=== PATIENT | male | born 1940 | race Caucasian/White ===

== ENCOUNTER 2017-03-31 09:37 | Inpatient (IN) | payer OTHER ==
[~2017-03-31] VITALS: Ht 188 cm; Wt 89.6 kg
[2017-03-31] MEDS ORDERED: DOXA1TAB42 PO (09:55)
[2017-03-31] MEDS ORDERED: LISI30TA4 PO (09:55)
[2017-03-31] MEDS ORDERED: SIMV40TA2 PO (09:55)
[2017-03-31] MEDS ORDERED: FISH100049 PO (09:55)
[2017-03-31] MEDS ORDERED: MULT1TAB10 PO (09:55)
[2017-03-31] MEDS ORDERED: VITA1CAP2 PO (09:55)
[2017-03-31] MEDS ORDERED: ASPI81TA85 PO (09:55)
[2017-03-31] MEDS ORDERED: DORZOL/TIMOL (09:55)
[2017-03-31] MEDS ORDERED: LEVO25TA5 PO (09:55)
[2017-03-31] MEDS ORDERED: ASPIRIN 81 MG CHEW TABLET PO ONE (10:15)
[2017-03-31 10:19] LABS: BASO % 0.3 % (0.0-1.0); EOS # 0.1 K/mm3 (0.0-0.50); EOS % 2.4 % (0.0-3.0); LARGE UNSTAINED CELL # 0.1 K/mm3 (0.0-0.4); LYMPH # 1.6 K/mm3 (1.5-4.5); LYMPH % 28.3 % (24.0-44.0); MEAN CORPUSCULAR HEMOGLOBIN 30.3 pg (27.0-33.0); MEAN CORPUSCULAR HGB CONC 32.1 g/dl (32.0-36.5); MEAN CORPUSCULAR VOLUME 94.6 fl (80.0-96.0); MONO # 0.4 K/mm3 (0.0-0.8); MONO % 6.7 % (0.0-5.0); NEUTROPHILS # 3.3 K/mm3 (1.8-7.7); NEUTROPHILS % 60.3 % (36.0-66.0); PLATELET COUNT, AUTOMATED 177 k/mm3 (150-450); RED CELL DISTRIBUTION WIDTH 13.2 % (11.5-14.5); WHITE BLOOD COUNT 5.5 K/mm3 (4.0-10.0)
[2017-03-31 10:38] LABS: ALBUMIN 3.5 GM/DL (3.2-5.2); ALBUMIN/GLOBULIN RATIO 1.03 (1.00-1.93); ALKALINE PHOSPHATASE 91 U/L (45-117); ALT/SGPT 31 U/L (12-78); ANION GAP 6 MEQ/L (8-16); AST/SGOT 21 U/L (15-37); BILIRUBIN,DIRECT 0.2 MG/DL (0.0-0.2); BILIRUBIN,TOTAL 0.7 MG/DL (0.2-1.0); BLOOD UREA NITROGEN 17 MG/DL (7-18); CALCIUM LEVEL 8.9 MG/DL (8.8-10.2); CARBON DIOXIDE LEVEL 25 MEQ/L (21-32); CHLORIDE LEVEL 113 MEQ/L (98-107); CREATININE FOR GFR 1.06 MG/DL (0.70-1.30); GLOMERULAR FILTRATION RATE > 60.0 (>42); GLUCOSE, FASTING 95 MG/DL (83-110); SODIUM LEVEL 144 MEQ/L (136-145); TOTAL PROTEIN 6.9 GM/DL (6.4-8.2)
--- NOTE | 2017-03-31 10:49 | REP ---
Chest one-view HISTORY: Chest pain Comparison: None The lungs are clear. The cardiac silhouette is enlarged. The pulmonary vasculature is normal in appearance. Impression: Cardiomegaly. Signed by Eusebio Hernandez MD 03/31/2017 10:40 A
[2017-03-31] MEDS ORDERED: METOPROLOL SUCC *XL* 25MG TAB (TopROL *XL*) PO ONE (12:00)
[2017-03-31] MEDS ORDERED: ENOXAPARIN 100MG/1ML SYRINGE (J1650) SC ONE ×2 (12:00→12:30)
--- NOTE | 2017-03-31 12:04 | ECGEPIP ---
Stationary ECG Study [facility] - ED Test Date: 2017-03-31 Pat Name: SOPHIA IVY Department: Room: - Gender: M Infrastructure Manager: KVNG : 1940 Requested By: HERNAN Hung Order Number: [id number] Reading MD: Kayley Carpenter Measurements Intervals [place] Rate: 106 P: VT: 0 QRS: -57 QRSD: 153 T: 52 QT: 315 QTc: 419 Interpretive Statements ATRIAL FIBRILLATION WITH RAPID VENTRICULAR RESPONSE RIGHT BUNDLE BRANCH BLOCK LEFT ANTERIOR FASCICULAR BLOCK MINIMAL VOLTAGE CRITERIA FOR LVH, CONSIDER NORMAL VARIANT NO PRIOR FOR COMPARISON Electronically Signed On 03-31-2017 12:04:05 EDT by Kayley Carpenter
[2017-03-31] MEDS ORDERED: ENOXAPARIN 100MG/1ML SYRINGE (J1650) As Ordered ONE (12:22)
[2017-03-31] MEDS ORDERED: ONDANSETRON 4MG/2ML VIAL (J2405) IV PRN (12:30)
[2017-03-31] MEDS ORDERED: ACETAMINOPHEN TAB 650MG DOSE (2X325MG) PO PRN (12:30)
[2017-03-31] MEDS ORDERED: DORZ2SOL5 OU (12:34)
[2017-03-31] MEDS ORDERED: VITMTA PO (12:34)
[2017-03-31] MEDS ORDERED: LEVO50TA45 PO (12:34)
--- NOTE | 2017-03-31 12:53 | HPEPDOC ---
General Date of Admission 03/31/17 Other Providers PCP: Dr. Serrano of [place] Chief Complaint The patient is a 76-year-old male admitted with a reason for visit of Palpitation. History of Present Illness 76-year-old Male with past medical history significant for hypertension, dyslipidemia, hypothyroidism, and BPH who follows with Dr. Serrano of the [place] [facility] presented to the ER after he was found to have an irregular heartbeat by his dentist yesterday. According to the patient, he went in for routine dental work yesterday, when he was found to be hypertensive at the dentist's office. Upon auscultation, the patient was noted to have an irregular heartbeat, at which time the patient was referred to see his primary care physician. The patient was subsequently sent from his PCPs office to the ER for further evaluation of new onset atrial fibrillation. At this time, the patient states that he has felt asymptomatic and denies any complaints or symptoms of fevers, chills, chest pain, shortness of breath, palpitations, abdominal pain, or any nausea/vomiting/diarrhea. The patient denies any history of heart disease. He does note that he had a stress test over 10 years ago, and his last EKG was about 5 years ago, and he notes that there were no significant abnormalities noted then. In the ER, an EKG revealed atrial fibrillation with rapid ventricular rate in the 120s. Initial troponin marker is within normal limits. The patient will be admitted under the hospitalist service for further evaluation and management Dr. Nieves of cardiology was consulted by the ER physician, and will see the patient in consult. Home Medications Scheduled (Dorzolamide HCl/Timolol M 22.3-6.8 mg/ml) 1 Hannah Hannah, 1 DROP OU BID, (Reported) Cholecalciferol (Vitamin D-3) 1,000 Unit Cap, 1,000 UNIT PO DAILY, (Reported) Doxazosin Mesylate (Doxazosin Mesylate) 1 Mg Tab, 2 MG PO QHS, (Reported) PT INCREASED THIS MEDICATION FROM 1MG TO 2MG BY HIMSELF Fish Oil (Fish Oil 1000 mg) 1 Cap Cap, 2 CAP PO DAILY, (Reported) Levothyroxine Sodium (Levoxyl) 50 Mcg Tab, 50 MCG PO DAILY, (Reported) Lisinopril (Lisinopril) 30 Mg Tab, 30 MG PO DAILY, (Reported) Multivitamins *SMC STOCKED* (Thera M Plus *[facility]C STOCKED*) 1 Tab Tab, 1 TAB PO BID , (Reported) Simvastatin - High Dose (Simvastatin) 40 Mg Tab, 20 MG PO QHS, (Reported) Allergies Coded Allergies: Tamsulosin (Verified Adverse Reaction, Mild, lightheaded, 03/31/17) Past Medical History Medical History As noted in HPI Surgical History Surgery of the Retina 30+ years ago. Family History Significant Family History: No pertinent family hx Social History * Smoker: Denies Alcohol: Denies Drugs: denies Recent Travel/Sick Contacts: Denies: Recent travel, Recent sick contacts Review of Symptoms Constitutional: Denies: Chills, Fever, Malaise Eyes: Denies: Pain, Vision change ENT: Denies: Head Aches, Ear Pain Skin: Denies: Rash, Lesions Pulmonary: Denies: Dyspnea, Cough Cardiovascular: Denies: Chest Pain, Palpitations, Orthopnea Gastrointestinal: Denies: Nausea, Abdominal Pain Genitourinary: Denies: Dysuria, Frequency Hematologic: Denies: Bruising, Bleeding Excessively Musculoskeletal: Denies: Neck Pain, Back Pain Physical Examination General Exam: Positive: Alert, Cooperative, No Acute Distress ENT Exam: Positive: Atraumatic, Mucous membr. moist/pink Neck Exam: Negative: JVD Chest Exam: Positive: Clear to auscultation, Normal air movement Heart Exam: Positive: Tachycardic, Irregular Rhythm Telemetry: Positive: Atrial fibrillation Abdomen Exam: Positive: Soft, Negative: Tenderness Extremity Exam: Negative: Tenderness, Swelling Psych Exam: Positive: Oriented x 3 Vital Signs Vital Signs Date Time Temp Pulse Resp B/P (MAP) Pulse Ox O2 Delivery O2 Flow Rate FiO2 03/31/17 12:05 117 114/112 03/31/17 11:22 98 03/31/17 09:38 99.1 18 Room Air Laboratory Data Labs 24H Laboratory Tests 2 03/31/17 09:57: White Blood Count 5.5, Red Blood Count 4.58, Hemoglobin 13.9L, Hematocrit 43.3, Mean Corpuscular Volume 94.6, Mean Corpuscular Hemoglobin 30.3, Mean Corpuscular Hemoglobin Concent 32.1, Red Cell Distribution Width 13.2, Platelet Count 177, Neutrophils (%) (Auto) 60.3, Lymphocytes (%) (Auto) 28.3, Monocytes ( %) (Auto) 6.7H, Eosinophils (%) (Auto) 2.4, Basophils (%) (Auto) 0.3, Neutrophils # (Auto) 3.3, Lymphocytes # (Auto) 1.6, Monocytes # (Auto) 0.4, Eosinophils # (Auto) 0.1, Basophils # (Auto) 0.0, Large Unclassified Cells % 2.0 , Large Unclassified Cells # 0.1, Activated Partial Thromboplast Time 32.0, Anion Gap 6L, Glomerular Filtration Rate > 60.0, Calcium Level 8.9, Aspartate Amino Transf (AST/SGOT) 21, Alanine Aminotransferase (ALT/SGPT) 31, Alkaline Phosphatase 91, Total Bilirubin 0.7, Direct Bilirubin 0.2, Total Creatine Kinase 83, Creatine Kinase MB 1.7, Creatine Kinase MB Relative Index 2.04, Troponin I < 0.02, B-Type Natriuretic Peptide 172H, Total Protein 6.9, Albumin 3.5, Albumin/Globulin Ratio 1.03 CBC/BMP Laboratory Tests 03/31/17 09:57 Red Blood Count 4.58, Mean Corpuscular Volume 94.6, Mean Corpuscular Hemoglobin 30.3, Mean Corpuscular Hemoglobin Concent 32.1, Red Cell Distribution Width 13.2 , Neutrophils (%) (Auto) 60.3, Lymphocytes (%) (Auto) 28.3, Monocytes (%) (Auto ) 6.7 H, Eosinophils (%) (Auto) 2.4, Basophils (%) (Auto) 0.3, Neutrophils # ( Auto) 3.3, Lymphocytes # (Auto) 1.6, Monocytes # (Auto) 0.4, Eosinophils # (Auto ) 0.1, Basophils # (Auto) 0.0 Plan / VTE VTE Prophylaxis Ordered?: Yes Plan Plan New Onset Atrial Fibrillation Will admit to PCU EKG notable for A-Fib with RVR--given dose of Metoprolol in the ER and his HR is now in the 90s Initial troponin negative, will serially trend Will Continue Metoprolol 25mg BID Will start anticoagulation with Lovenox 90mg SC BID--discussed risks and benefits associated with AC therapy extensively with the patient 2D ECHO ordered Will order TFT's, Magnesium level Cardiology to see the pt in consult We will continue to monitor the patient on Telemetry Hypertension, stable Cont Lisinopril, Doxazosin Dyslipidemia Cont Statin Hypothyroidism Will check TFT's Cont Levothyroxine BPH Cont Doxazosin DVT Prophylaxis Already on Lovenox SC BID for A-Fib The patient will be admitted under the service of Dr. Willams, who will begin to follow the patient on 04/01/17 @ 7am. WENDY SAUCEDO MD Mar 31, 2017 12:53
[2017-03-31 13:34] LABS: INR 1.11
[2017-03-31 13:52] LABS: CHOLESTEROL LEVEL 121 MG/DL (<200); MAGNESIUM LEVEL 2.1 MG/DL (1.8-2.4); TRIGLYCERIDES LEVEL 54 MG/DL (<150)
[2017-03-31 13:58] LABS: T UPTAKE 40 % (33-40)
[2017-03-31] MEDS ORDERED: PREVNAR 13 VACCINE SYRINGE (CPT CODE:90670) IM ONE (14:00)
[2017-03-31] MEDS ORDERED: NEOSPORIN OINT 0.9 GM PKT (FLOOR STOCK) As Ordered ONE (16:43)
[2017-03-31 18:25] VITALS: BP 150/88
[2017-03-31 20:00] VITALS: BP 139/90
[2017-03-31] MEDS: SIMVASTATIN 20 MG TAB PO SCH (20:09)
[2017-03-31] MEDS: DOXAZOSIN MESYLATE 1 MG TAB PO SCH (20:09)
[2017-03-31] MEDS: MULTIVITAMINS/MINERALS THERAP 1 TAB PO SCH (20:09)
[2017-03-31] MEDS ORDERED: METOPROLOL TART 25 MG TABLET PO SCH (21:00)
[2017-03-31] MEDS: ENOXAPARIN 100MG/1ML SYRINGE (J1650) SC SCH (22:10)
[2017-03-31] MEDS ORDERED: SLF 3 ML SYR IV PRN (22:45)
[2017-03-31 23:59] VITALS: BP 135/88
[2017-04-01 04:45] VITALS: BP 124/74
[2017-04-01] MEDS: SLF 3 ML SYR IV SCH ×3 (05:21→21:04)
[2017-04-01] MEDS: LEVOTHYROXINE 50MCG TABLET (0.05MG) PO SCH (05:21)
[2017-04-01 05:36] LABS: MEAN CORPUSCULAR HEMOGLOBIN 30.9 pg (27.0-33.0); MEAN CORPUSCULAR HGB CONC 32.5 g/dl (32.0-36.5); RED CELL DISTRIBUTION WIDTH 13.2 % (11.5-14.5); WHITE BLOOD COUNT 4.7 K/mm3 (4.0-10.0)
[2017-04-01 05:46] LABS: ANION GAP 6 MEQ/L (8-16); BLOOD UREA NITROGEN 17 MG/DL (7-18); CALCIUM LEVEL 8.4 MG/DL (8.8-10.2); CARBON DIOXIDE LEVEL 26 MEQ/L (21-32); CHLORIDE LEVEL 111 MEQ/L (98-107); CREATININE FOR GFR 1.02 MG/DL (0.70-1.30); GLOMERULAR FILTRATION RATE > 60.0 (>42); GLUCOSE, FASTING 79 MG/DL (83-110); MAGNESIUM LEVEL 1.9 MG/DL (1.8-2.4); SODIUM LEVEL 143 MEQ/L (136-145)
[2017-04-01 08:00] VITALS: BP 135/85
[2017-04-01] MEDS: LISINOPRIL 10 MG TAB PO SCH (09:11)
[2017-04-01] MEDS: VITAMIN D 1,000 INTERNATIONAL UNITS TABLET PO SCH (09:11)
[2017-04-01] MEDS: OMEGA-3 1050MG CAPSULE PO SCH (09:12)
[2017-04-01] MEDS: METOPROLOL TART 25 MG TABLET PO SCH ×2 (09:12→20:05)
[2017-04-01] MEDS: MULTIVITAMINS/MINERALS THERAP 1 TAB PO SCH ×2 (09:12→20:05)
[2017-04-01 12:00] VITALS: BP 119/76
[2017-04-01] MEDS: ENOXAPARIN 100MG/1ML SYRINGE (J1650) SC SCH ×2 (12:20→22:09)
--- NOTE | 2017-04-01 13:17 | IPNPDOC ---
Subjective Date Seen The patient was seen on 04/01/17. Subjective Chief Complaint/HPI The patient is a 76-year-old male admitted with a reason for visit of New Onset A-Fib. Constitutional: Denies: Chills, Fever, Night Sweats Pulmonary: Denies: Dyspnea, Cough Cardiovascular: Denies: Chest Pain, Palpitations, Orthopnea, Paroxysmal Noc. Dyspnea, Lt Headedness Objective Physical Examination General Exam: Positive: Alert, Cooperative, No Acute Distress ENT Exam: Positive: Atraumatic, Mucous membr. moist/pink Neck Exam: Negative: JVD Chest Exam: Positive: Clear to auscultation, Normal air movement Heart Exam: Positive: Tachycardic, Irregular Rhythm Telemetry: Positive: Atrial fibrillation Abdomen Exam: Positive: Soft, Negative: Tenderness Extremity Exam: Negative: Tenderness, Swelling Psych Exam: Positive: Oriented x 3 Assessment /Plan Problems (1) New onset a-fib Status: Acute Problem Text: * pt was found to be in afib when he went to see his dentist last week * he went to his pcp who diagnosed with Afib and sent him to the hospital * will resume metoprolol tartrate 25bid, and eliquis * will need to f/u with cardiology outpt * i spoke with Dr howell who is happy to see him oupt * pt has a 2 sec pause on tele, i discussed finding with dr howell who stated that it's not an indication to stop his beta cherie * will monitor him on tele overnight and anticipate discharge in 24-48 hours * echo is pending (2) Tooth ache Status: Acute Problem Text: * will resume pt's amoxicillin (3) HTN (hypertension) Status: Chronic Response to Treatment: Stable (4) HLD (hyperlipidemia) Status: Chronic Response to Treatment: Stable (5) Hypothyroidism Status: Chronic Response to Treatment: Stable (6) BPH (benign prostatic hyperplasia) Status: Chronic Plan/VTE VTE Prophylaxis Ordered?: Yes VS, I&O, 24H, Fishbone Vital Signs/I&O Vital Signs Date Time Temp Pulse Resp B/P (MAP) Pulse Ox O2 Delivery O2 Flow Rate FiO2 04/01/17 09:12 140 04/01/17 09:11 135/85 04/01/17 08:00 98.0 18 99 Room Air I&O- Last 24 Hours up to 6 AM 04/01/17 06:00 Intake Total 120 ml Output Total 0 ml Balance 120 ml Laboratory Data 24H LABS Laboratory Tests 2 03/31/17 13:16: Prothrombin Time 14.4, Prothromb Time International Ratio 1.11 03/31/17 20:34: Total Creatine Kinase 81, Creatine Kinase MB 2.5, Creatine Kinase MB Relative Index 3.08, Troponin I < 0.02 04/01/17 04:52: Total Creatine Kinase 73, Creatine Kinase MB 1.4, Creatine Kinase MB Relative Index 1.91, Troponin I < 0.02, Anion Gap 6L, Glomerular Filtration Rate > 60.0, Blood Urea Nitrogen 17, Creatinine 1.02, Sodium Level 143, Potassium Level 4.0, Chloride Level 111H, Carbon Dioxide Level 26, Calcium Level 8.4L, Magnesium Level 1.9 CBC/BMP Laboratory Tests 04/01/17 04:52 Red Blood Count 4.25 L, Mean Corpuscular Volume 95.0, Mean Corpuscular Hemoglobin 30.9, Mean Corpuscular Hemoglobin Concent 32.5, Red Cell Distribution Width 13.2, Calcium Level 8.4 L, Total Creatine Kinase 73 TANVIR CARIAS DO Apr 01, 2017 13:17
--- NOTE | 2017-04-01 14:34 | ECHO ---
DATE OF PROCEDURE: 03/31/2017 REFERRING PHYSICIAN: Dr. Boubacar Smith INDICATION: Abnormal ECG, atrial fibrillation. HEIGHT: 74 inches WEIGHT: 202 pounds 2D MEASUREMENTS: Aortic root: 4.7 cm Proximal ascending aorta: 3.9 cm Left atrium: 5.4 cm Ventricular septum: 1.12 cm Posterior wall: 1.12 cm Left ventricle diastole: 5.8 cm Left ventricle systole: 4.2 cm LVOT: 2.2 cm Inferior vena cava: 1.8 cm (more than 50% respiratory variation). DOPPLER MEASUREMENTS: Mild aortic regurgitation. Aortic regurgitation pressure half time: 651 ms Aortic valve velocity: 187 cm/s LVOT velocity: 113 cm/s LVOT VTI: 21.8 cm Very mild mitral regurgitation. Estimated right ventricle systolic pressure 28 mmHg assuming a right atrial pressure of 5 mmHg. Mild tricuspid regurgitation. DESCRIPTION: Rhythm was atrial fibrillation. This is a 2D, M-mode, color flow Doppler and pulse wave Doppler examination that included mitral annular tissue Doppler. No pericardial effusion. CONCLUSIONS: 1. Mildly dilated left ventricle with normal left ventricle (LV) wall thicknesses. Moderate global LV hyperkinesis. Severe reduction overall LV systolic function. Left ventricular ejection fraction (LVEF) 35% by visual estimate. 2. Severe left atrial dilatation. 3. Mild-moderate aortic valve sclerosis. No aortic stenosis. Mild aortic regurgitation. 4. Mild dilatation of the aortic root at both the level of the sinus of Valsalva and proximal ascending aorta. 5. Mild mitral annular calcification. Mild mitral regurgitation. 6. Normal right ventricle size and systolic function. Moderate right atrial dilatation by visual estimate.
[2017-04-01] MEDS: AMOXICILLIN 500 MG CAP PO SCH ×2 (15:19→21:05)
[2017-04-01 16:00] VITALS: BP 122/75
[2017-04-01] MEDS: SIMVASTATIN 20 MG TAB PO SCH (20:04)
[2017-04-01] MEDS: DOXAZOSIN MESYLATE 1 MG TAB PO SCH (20:04)
[2017-04-01 20:32] VITALS: BP 140/91
[2017-04-01 23:59] VITALS: BP 136/98
[2017-04-02 04:45] VITALS: BP 132/99
[2017-04-02] MEDS: SLF 3 ML SYR IV SCH ×3 (05:06→21:01)
[2017-04-02] MEDS: LEVOTHYROXINE 50MCG TABLET (0.05MG) PO SCH (05:06)
[2017-04-02] MEDS: AMOXICILLIN 500 MG CAP PO SCH ×3 (05:06→21:00)
[2017-04-02 05:12] LABS: MEAN CORPUSCULAR HEMOGLOBIN 31.3 pg (27.0-33.0); MEAN CORPUSCULAR HGB CONC 33.6 g/dl (32.0-36.5); MEAN CORPUSCULAR VOLUME 93.1 fl (80.0-96.0); RED CELL DISTRIBUTION WIDTH 13.1 % (11.5-14.5); WHITE BLOOD COUNT 4.8 K/mm3 (4.0-10.0)
[2017-04-02 05:22] LABS: ANION GAP 8 MEQ/L (8-16); BLOOD UREA NITROGEN 22 MG/DL (7-18); CALCIUM LEVEL 8.1 MG/DL (8.8-10.2); CARBON DIOXIDE LEVEL 26 MEQ/L (21-32); CHLORIDE LEVEL 110 MEQ/L (98-107); CREATININE FOR GFR 1.07 MG/DL (0.70-1.30); GLOMERULAR FILTRATION RATE > 60.0 (>42); GLUCOSE, FASTING 87 MG/DL (83-110); MAGNESIUM LEVEL 1.9 MG/DL (1.8-2.4); POTASSIUM SERUM 4.3 MEQ/L (3.5-5.1); SODIUM LEVEL 144 MEQ/L (136-145)
[2017-04-02 08:00] VITALS: BP 146/92
--- NOTE | 2017-04-02 08:33 | IPNPDOC ---
Subjective Date Seen The patient was seen on 04/02/17. Subjective Chief Complaint/HPI The patient is a 76-year-old male admitted with a reason for visit of New Onset A-Fib. Events since last encounter pt seen and examined, doing well, but had another pause on tele overnight, 2 second pause, pt denies any chest pain or shortness of breath, denies any dizziness Objective Physical Examination General Exam: Positive: Alert, Cooperative, No Acute Distress ENT Exam: Positive: Atraumatic, Mucous membr. moist/pink Neck Exam: Negative: JVD Chest Exam: Positive: Clear to auscultation, Normal air movement Heart Exam: Positive: Tachycardic, Irregular Rhythm Telemetry: Positive: Atrial fibrillation Abdomen Exam: Positive: Soft, Negative: Tenderness Extremity Exam: Negative: Tenderness, Swelling Psych Exam: Positive: Oriented x 3 Assessment /Plan Problems (1) New onset a-fib Status: Acute Problem Text: * pt was found to be in afib when he went to see his dentist last week * he went to his pcp who diagnosed with Afib and sent him to the hospital * will decrease dose of metoprolol tartrate to 12.5 bid, and eliquis 5mg bid * will need to f/u with cardiology outpt * i spoke with Dr howell who is happy to see him oupt * pt has a 2 sec pause on tele, i discussed finding with dr howell who stated that it's not an indication to stop his beta cherie but will decrease the dose * will monitor him on tele overnight and anticipate discharge in 24-48 hours * echo showed EF of 35% * CHADS score of 3 (2) Tooth ache Status: Acute Problem Text: * will resume pt's amoxicillin (3) HTN (hypertension) Status: Chronic Response to Treatment: Stable (4) HLD (hyperlipidemia) Status: Chronic Response to Treatment: Stable (5) Hypothyroidism Status: Chronic Response to Treatment: Stable (6) BPH (benign prostatic hyperplasia) Status: Chronic (7) CHF (congestive heart failure) Status: Chronic Response to Treatment: Stable, Controlled Problem Text: * per echo done on 04/01 EF of 35% * systolic CHF, controlled, no in acute chf Plan/VTE VTE Prophylaxis Ordered?: Yes VS, I&O, 24H, Fishbone Vital Signs/I&O Vital Signs Date Time Temp Pulse Resp B/P (MAP) Pulse Ox O2 Delivery O2 Flow Rate FiO2 04/02/17 08:00 97.3 98 18 146/92 (110) 98 Room Air I&O- Last 24 Hours up to 6 AM 04/02/17 06:00 Intake Total 840 ml Output Total 700 ml Balance 140 ml Laboratory Data 24H LABS Laboratory Tests 2 04/02/17 04:20: Anion Gap 8, Glomerular Filtration Rate > 60.0, Blood Urea Nitrogen 22H, Creatinine 1.07, Sodium Level 144, Potassium Level 4.3, Chloride Level 110H, Carbon Dioxide Level 26, Calcium Level 8.1L, Magnesium Level 1.9 CBC/BMP Laboratory Tests 04/02/17 04:20 Red Blood Count 4.15 L, Mean Corpuscular Volume 93.1, Mean Corpuscular Hemoglobin 31.3, Mean Corpuscular Hemoglobin Concent 33.6, Red Cell Distribution Width 13.1, Calcium Level 8.1 L TANVIR CARIAS DO Apr 02, 2017 08:33
[2017-04-02] MEDS: METOPROLOL TART 12.5 MG PER 1/2 TAB PO SCH ×2 (08:49→20:59)
[2017-04-02] MEDS: VITAMIN D 1,000 INTERNATIONAL UNITS TABLET PO SCH (08:50)
[2017-04-02] MEDS: OMEGA-3 1050MG CAPSULE PO SCH (08:50)
[2017-04-02] MEDS: MULTIVITAMINS/MINERALS THERAP 1 TAB PO SCH ×2 (08:50→21:00)
[2017-04-02] MEDS: APIXABAN 5 MG TAB (ELIQUIS) PO SCH ×2 (08:50→21:00)
[2017-04-02] MEDS: LISINOPRIL 10 MG TAB PO SCH (08:50)
[2017-04-02] MEDS ORDERED: PREVNAR 13 VACCINE SYRINGE (CPT CODE:90670) IM ONE (09:00)
[2017-04-02 12:00] VITALS: BP 123/77
[2017-04-02 16:00] VITALS: BP 141/85
[2017-04-02 20:09] VITALS: BP 127/79
[2017-04-02] MEDS: SIMVASTATIN 20 MG TAB PO SCH (21:00)
[2017-04-02] MEDS: DOXAZOSIN MESYLATE 1 MG TAB PO SCH (21:00)
[2017-04-03 00:17] VITALS: BP 126/75
[2017-04-03 05:30] VITALS: BP 139/80
[2017-04-03] MEDS: SLF 3 ML SYR IV SCH ×3 (05:34→21:16)
[2017-04-03] MEDS: LEVOTHYROXINE 50MCG TABLET (0.05MG) PO SCH (05:34)
[2017-04-03] MEDS: AMOXICILLIN 500 MG CAP PO SCH ×3 (05:34→21:15)
[2017-04-03 05:35] LABS: MEAN CORPUSCULAR HEMOGLOBIN 30.6 pg (27.0-33.0); MEAN CORPUSCULAR HGB CONC 32.1 g/dl (32.0-36.5); MEAN CORPUSCULAR VOLUME 95.3 fl (80.0-96.0); RED CELL DISTRIBUTION WIDTH 12.9 % (11.5-14.5); WHITE BLOOD COUNT 6.4 K/mm3 (4.0-10.0)
[2017-04-03 05:53] LABS: ANION GAP 5 MEQ/L (8-16); BLOOD UREA NITROGEN 22 MG/DL (7-18); CALCIUM LEVEL 8.3 MG/DL (8.8-10.2); CARBON DIOXIDE LEVEL 28 MEQ/L (21-32); CHLORIDE LEVEL 110 MEQ/L (98-107); CREATININE FOR GFR 1.05 MG/DL (0.70-1.30); GLOMERULAR FILTRATION RATE > 60.0 (>42); GLUCOSE, FASTING 82 MG/DL (83-110); MAGNESIUM LEVEL 2.2 MG/DL (1.8-2.4); POTASSIUM SERUM 4.2 MEQ/L (3.5-5.1); SODIUM LEVEL 143 MEQ/L (136-145)
[2017-04-03 08:00] VITALS: BP 116/69
[2017-04-03] MEDS: LISINOPRIL 10 MG TAB PO SCH (08:05)
[2017-04-03] MEDS: METOPROLOL TART 12.5 MG PER 1/2 TAB PO SCH (08:06)
[2017-04-03] MEDS: OMEGA-3 1050MG CAPSULE PO SCH (08:06)
[2017-04-03] MEDS: APIXABAN 5 MG TAB (ELIQUIS) PO SCH ×2 (08:06→21:15)
[2017-04-03] MEDS: MULTIVITAMINS/MINERALS THERAP 1 TAB PO SCH (08:06)
[2017-04-03] MEDS: VITAMIN D 1,000 INTERNATIONAL UNITS TABLET PO SCH (08:06)
[2017-04-03 12:00] VITALS: BP 126/83
[2017-04-03] MEDS ORDERED: ELIQ5TAB PO (13:06)
[2017-04-03 16:00] VITALS: BP 138/89
[2017-04-03 19:48] VITALS: BP 136/95
[2017-04-03] MEDS ORDERED: CARVedilol 6.25 MG TAB PO SCH (21:00)
[2017-04-03] MEDS: COSOPT OCUMETER PLUS 10ML (DORZOLAMIDE/TIMOLOL) OU SCH (21:15)
[2017-04-03] MEDS: SIMVASTATIN 20 MG TAB PO SCH (21:15)
[2017-04-03] MEDS: METOPROLOL SUCC *XL* 25MG TAB (TopROL *XL*) PO SCH (21:15)
--- NOTE | 2017-04-03 22:24 | CR ---
DATE OF CONSULTATION: 04/03/2017 REFERRING PHYSICIAN: Dr. Geronimo Finnegan REASON FOR CONSULTATION: Atrial fibrillation, dilated cardiomyopathy. Assessment need for pacemaker. HISTORY OF PRESENT ILLNESS: Mr. Álvaro Karimi is a very pleasant 76-year-old man with systemic hypertension, hypercholesterolemia and benign prostatic hypertrophy. He was seen by his dentist on the day of admission and was noted to have a rapid heartbeat. He was sent to [facility] where he was discovered to have atrial fibrillation with rapid ventricular rate. The patient to his knowledge has never had any prior diagnosis of cardiomyopathy, heart failure, coronary disease or cardiac dysrhythmias prior to hospitalization. Echocardiogram Doppler 03/31/2017 on this admission has been reported on a separate cover. It showed a mildly dilated left ventricle with normal left ventricular wall thickness and moderate global left ventricular hypokinesis with severe reduction overall left ventricular systolic function. Left ventricular ejection fraction (LVEF) 35% by visual estimate. Severe left atrial dilatation. Mild-moderate aortic valve sclerosis was present. No aortic stenosis. Presence of mild aortic regurgitation. Mild dilation of the aortic root at both levels of Valsalva and proximally ascending aorta. Mild mitral aortic calcification with mild mitral regurgitation. Normal right ventricular size and systolic function. Moderate right dilatation by visual assessment. CARDIAC STATUS: The patient denies any pain, pressure, tightness or squeezing involving the anterior chest, neck, jaw or upper extremities with or without exertion. He generally is not bother by exertional dyspnea, but he recalls in the past several months on two or three occasions, he experienced some mild dyspnea on his exercise bicycle that he uses for 25 minutes at a time. No peripheral edema. No orthopnea or paroxysmal nocturnal dyspnea (PND). No pre-syncope or syncope. He does recall having two or three episodes of dizziness persisting for a few minutes in the past few months. He has previously been intolerant of Flomax, resulting in orthostatic lightheadedness. He is completely unaware of any palpations. No embolic events. No intermittent claudication. OTHER PAST MEDICAL AND SURGICAL HISTORY: Benign prostatic hypertrophy. Prior retinal surgery more than 30 years ago. Systemic hypertension. 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 Hypercholesterolemia, hypothyroidism, systemic hypertension. Glaucoma. ADVERSE DRUG REACTIONS: TAMSULOSIN (mild lightheadedness). MEDICATIONS PRIOR TO ADMISSION: - dorzolamide/ timolol ophthalmic solution one drop in both eyes twice a day - doxazosin 2 mg at bedtime (q.h.s.) - fish oil 1000 mg times two capsules daily - levothyroxine 60 mcg daily - lisinopril 30 mg daily - multivitamins one daily - simvastatin 20 mg at bedtime (q.h.s.) The patient's current medications in the hospital are as follows: - acetaminophen 650 mg every 4 hours as needed - amoxicillin 500 mg by mouth twice a day - Eliquis 5 mg twice a day - Cosopt plus one drop in both eyes twice a day - doxazosin 2 mg at bedtime (q.h.s.) - fish oil one capsule daily - Synthroid 60 mcg daily - lisinopril 30 mg daily - metoprolol tartrate 12.5 mg twice a day - multivitamins one twice a day - Zofran 4 mg every 6 hours as needed for nausea or vomiting. - simvastatin 20 mg at bedtime (q.h.s.) - vitamin D 1000 units daily FAMILY HISTORY: Negative for premature coronary disease. SOCIAL HISTORY: Non-smoker. No alcohol. No illicit drugs. No recent travel and no recent sick contact. REVIEW OF SYSTEMS: No positive review of systems. All 10-point review of systems negative. No anxiety, panic attacks or depression. PHYSICAL EXAMINATION: Pleasant man who was not in any respiratory or psychologic distress. Appears his chronologic age. Appears mildly overweight. Height 74 inches, weight 90.3 kg, body mass index (BMI) 25.6. Pulse 98 (irregularly irregular), temperature 99.6, respiratory rate 18, blood pressure (BP) 136/98, blood pressure (BP) yesterday evening was 120/68. Oxygen saturation 97% on room air. No conjunctival pallor or scleral icterus or xanthelasma. Multiple missing teeth. Some dental fillings present. Oral mucosa was moist without pallor or thrush. Jugular venous pulsations 5 cm. Trachea midline. No palpable thyroid. No clubbing, nail bed cyanosis or splinter hemorrhages. A few skin tags were present. Seborrheic keratosis was present. No skin pallor or icterus. Oriented to person, place and time. Mood and affect sujatha. Curvature of the spine normal. Normal gait. Normal gross strength and tone. Respiratory expansion effort is good. No crackles or wheezes. First and second heart sounds are variable in intensity. Grade 1 systolic ejection murmur in right second interspace. No diastolic murmurs appreciated. No S3 or gallops. No pericardial or friction rubs. No palpable apex beat. No lift, parasternal, heaves, thrills or palpable heart sounds. Carotids are normal in volume and contour and without bruits. No palpable abdominal aorta. No abdominal bruits. Femoral pulses normal. Pedal pulses normal. No lower extremity edema. No varicose veins. Abdomen was soft, nontender with normal bowel sounds. No hepatosplenomegaly or organomegaly. Liver span 12 cm to the right midclavicular line. Stool for occult blood to be ordered as the patient has been placed on Eliquis. INVESTIGATIONS: Arterial blood gas (ABG) 03/31/2017 at 9:53 a.m. shows atrial fibrillation with mildly rapid response. Ventricular rate 106 beats per minute (bpm), right bundle branch block with left anterior fascicular block, possible right ventricular hypertrophy, left ventricular hypertrophy by voltages, QRS tracing 153 milliseconds. Abnormal electrocardiogram (ECG). Portable chest x-ray 03/31/2017 reported cardiomegaly. Lungs clear. Pulmonary vasculature normal in appearance. Laboratory work 04/03/2017 shows sodium 143, potassium 4.2, chloride 110, CO2 28, BUN 22, creatine 1.05, glomerular filtration rate (GFR) greater than 60, glucose 82, magnesium 2.2. Laboratory work 03/31/2017 showed brain natriuretic peptide (BNP) elevated at 172. Laboratory work 03/31/2017 showed hemoglobin 13.9, hematocrit 43.3, platelets 177. ASSESSMENT AND PLAN: 1. Atrial fibrillation (chronic). I presume that atrial fibrillation is most likely chronic because of the patient's left atrium is severely dilated. He has not been symptomatic with palpitations. It is unknown how long he has had atrial fibrillation. He had a mild rapid ventricular rate upon presentation. Because of his dilated cardiomyopathy with systolic heart failure, I recommend that an FDA systolic approved heart failure beta cherie be used. I will switch him from metoprolol tartrate 12.5 mg twice a day over to metoprolol succinate beginning at 25 mg twice a day. He has been observed to have a few RR intervals up to 2.5 seconds which have been asymptomatic. At this point, I would not official declare the presence of tachycardia/bradycardia syndrome, but this may well be in this patient's future at some point. My plan is to follow him closely as an outpatient and adjust the dosage of beta cherie and if necessary additional atrioventricular (AV) benigno slowing medications and observe him closely for excessive bradycardia or uncontrolled tachycardia. If in the future he meets criteria for tachycardia/bradycardia syndrome and requires single chamber pacing, if he continues to have significantly reduced left ventricular systolic function, he will be considered for a biventricular pacemaker or a biventricular implantable cardioverted defibrillator (ICD). Alternatively, if his left ventricular ejection fraction returns to normal and it is felt that he is likely to be pacing less than 40% of the time, but requires a VVI pacemaker for tachycardia/bradycardia syndrome, then he would qualify for a single chamber pacemaker. This patient's CHADSVasc2 score is 4 with 2 point scored with 2 points scored for age of 76, 1 point scored for heart failure and 1 point scored for systemic hypertension. Agree with the use of Eliquis. Stool for occult blood has been ordered. 2. Dilated cardiomyopathy and chronic systolic and diastolic heart failure. Infrequent occurrence of exertional dyspnea that occurs when using his stationary exercise bicycle. He appears decompensated at this time. During his hospitalization, he has had documentation of a mildly elevated brain natriuretic peptide (BNP) level. As noted above, metoprolol tartrate has been changed to metoprolol succinate at a dosage of 25 mg twice a day. Continue lisinopril 30 mg daily. Doxazosin is contraindicated in heart failure. Doxazosin has therefore been discontinued and replaced with finasteride. At this point, I do not see a strong reason to place him on a diuretic as he appears compensated and is without exertional dyspnea at this time. I would not add digoxin at this time. Perhaps as an outpatient I can consider him for being switched from lisinopril to Entresto. 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 If the patient's dilated cardiomyopathy persists with left ventricular ejection fraction of 35% or less after three months of maximal medical therapy, then he would be considered for a biventricular implantable cardioverted defibrillator (ICD). 3. Systemic hypertension. Blood pressure trends in the hospital indicate primarily controlled systemic hypertension. Continue lisinopril at the current dosage. As noted, he will be switched from metoprolol tartrate to metoprolol succinate. I did not place him on carvedilol because the patient has intolerance due to lightheadedness with tamsulosin in the past and he is now being placed on finasteride and I wish to avoid provoking orthostatic hypotension. 4. Hypercholesterolemia. Recommend placing the patient on a DASH diet with a 2.5 gram sodium restriction. Recommend discontinuation of fish oil as this is of no outcome benefit and may increase or cause mortality and also increase his risk of prostate cancer. 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 Continue simvastatin at the current dosage. 5. Right bundle branch block with left anterior fascicular block, likely chronic, as suggested above already. 6. Abnormal electrocardiogram (ECG) as described. Thank you kindly for asking to participate in the cardiac care of this patient. With kindest regards.
[2017-04-04 00:14] VITALS: BP 127/85
[2017-04-04 03:44] VITALS: BP 148/82
[2017-04-04] MEDS: LEVOTHYROXINE 50MCG TABLET (0.05MG) PO SCH (05:15)
[2017-04-04] MEDS: AMOXICILLIN 500 MG CAP PO SCH (05:15)
[2017-04-04] MEDS: SLF 3 ML SYR IV SCH (05:15)
[2017-04-04 05:41] LABS: MEAN CORPUSCULAR HEMOGLOBIN 31.5 pg (27.0-33.0); MEAN CORPUSCULAR HGB CONC 33.5 g/dl (32.0-36.5); MEAN CORPUSCULAR VOLUME 93.8 fl (80.0-96.0); RED CELL DISTRIBUTION WIDTH 12.9 % (11.5-14.5)
[2017-04-04 05:55] LABS: ANION GAP 7 MEQ/L (8-16); BLOOD UREA NITROGEN 21 MG/DL (7-18); CALCIUM LEVEL 8.9 MG/DL (8.8-10.2); CARBON DIOXIDE LEVEL 26 MEQ/L (21-32); CHLORIDE LEVEL 109 MEQ/L (98-107); CREATININE FOR GFR 1.06 MG/DL (0.70-1.30); GLOMERULAR FILTRATION RATE > 60.0 (>42); GLUCOSE, FASTING 95 MG/DL (83-110); MAGNESIUM LEVEL 2.1 MG/DL (1.8-2.4); POTASSIUM SERUM 4.4 MEQ/L (3.5-5.1); SODIUM LEVEL 142 MEQ/L (136-145)
--- NOTE | 2017-04-04 06:49 | IPN ---
DATE OF EXAM: 04/03/2017 SUBJECTIVE: The patient voiced that he feels well. He has no chest pain, shortness of breath, fever, chills, nausea, vomiting, or diarrhea. He otherwise reports feeling well, in his usual state of health, he has been asymptomatic for his entire stay. Over night events; however, the patient was noted to be tachycardic to the 150s. OBJECTIVE: VITAL SIGNS: Temperature 98.5, pulse 78, respiratory rate 18, blood pressure 148/82, oxygen saturation 97% on room air. GENERAL: He is a slim, tall, elderly male up ambulating around his room. He does not appear to be in any distress whatsoever. HEENT: Cranial nerves II-XII are grossly intact. He had moist mucous membranes. No elevation of central venous pressure (CVP). CARDIOVASCULAR: S1, S2, regular. Irregularly, irregular. Tachycardic. No distant heart sounds appreciated. RESPIRATORY: Clear. ABDOMEN: Benign. EXTREMITIES: No clubbing, cyanosis, or edema. LABORATORY DATA: WBC 6.4, hemoglobin 12.9, hematocrit 40.2, platelet count 167. Chemistry panel: Sodium 143, potassium 4.2, chloride 110, bicarbonate 28, BUN 22, creatinine 1.0. He had multiple sets of cardiac enzymes that are negative. ASSESSMENT AND PLAN: This is a 76-year-old man with atrial fibrillation. PROBLEMS: 1. Atrial fibrillation. It is unclear if this is chronic or acute. The patient was asymptomatic with it; however, given his echocardiogram findings of decreased ejection fraction and severely dilated left atrium, it is possible that this has been going on with some chronicity. There is concern that he may have tachybrady syndrome as he did have 2-1/2 second pauses while on the beta cherie and once the beta cherie dose was decreased he became quite tachycardic. At this time I have spoken to Dr. Tolentino, beam racker who agreed to see the patient in consultation for evaluation potentially for a pacemaker. His CHADSvasc 2 score is 4, the patient has been started on Eliquis. The risks and benefits regarding the risk of stroke with no anticoagulation and potential life threatening bleeding, intracranial and gastrointestinal (GI) bleeding has also been discussed with the patient. 2. Dilated cardiomyopathy. On echocardiogram the patient has not had a clinical diagnosis of congestive heart failure. Possibly tachyarrhythmia induced. Once again Dr. Tolentino will see the patient this afternoon as this is a new diagnosis for this patient. I suspect this may be tachycardia, arrhythmia induced cardiomyopathy and if failure to response for 90 days, he should be considered for potential automatic implantable cardio converter-defibrillator (AICD) . 3. Hypertension. Controlled with greg inhibitor and beta cherie. 4. Dyslipidemia. The patient is simvastatin. 5. Dental infection. The patient continued on Amoxicillin. This appears to be resolving. 6. Hypothyroidism. Continue with his hormone replacement therapy. 7. Benign prostatic hypertrophy (BPH). The patient on doxazosin. This may need adjusting given that he has a new diagnosis of heart failure. 8. Deep venous thrombosis (DVT prophylaxis: The patient is on Eliquis. 9. Vitamin D deficiency. The patient is on supplementation. DISPOSITION: The patient will be continued to be monitored in the progressive care unit. Cardiology consultation is pending.
[2017-04-04 07:40] VITALS: BP 143/99
[2017-04-04] MEDS ORDERED: FINASTERIDE 5 MG TAB PO SCH (09:00)
[2017-04-04] MEDS: LISINOPRIL 10 MG TAB PO SCH (09:21)
[2017-04-04] MEDS: COSOPT OCUMETER PLUS 10ML (DORZOLAMIDE/TIMOLOL) OU SCH (09:21)
[2017-04-04 09:22] VITALS: BP 143/99
[2017-04-04] MEDS: METOPROLOL SUCC *XL* 25MG TAB (TopROL *XL*) PO SCH (09:22)
[2017-04-04] MEDS: VITAMIN D 1,000 INTERNATIONAL UNITS TABLET PO SCH (09:22)
[2017-04-04] MEDS: APIXABAN 5 MG TAB (ELIQUIS) PO SCH (09:22)
[2017-04-04] MEDS ORDERED: AMOX500C PO (09:42)
[2017-04-04] MEDS ORDERED: FINA5TAB2 PO (09:42)
[2017-04-04] MEDS ORDERED: METO25TA74 PO (09:42)
[2017-04-04 12:01] VITALS: BP 126/70
--- NOTE | 2017-04-04 22:52 | DSES ---
DATE OF ADMISSION: 03/31/2017 DATE OF DISCHARGE: 04/04/2017 DISCHARGE DIAGNOSIS: Atrial fibrillation. SECONDARY DIAGNOSES: 1. Dilated cardiomyopathy. 2. Hypertension. 3. Dyslipidemia. 4. Dental infection. 5. Hypothyroidism. 6. BPH. 7. Vitamin D deficiency. HOSPITAL COURSE: The patient is a 76-year-old man who initially presented for a tooth extraction and was found to have an irregular fast heart rate by his dentist and referred to his primary care provider. He presented to his primary care provider who referred him to the emergency room. The patient was asymptomatic. 1. He was found to have new onset atrial fibrillation with rapid ventricular response. He normally follows with the [facility]. He was admitted to telemetry and started on rate controlling agents. An echocardiogram revealed severely dilated left atrium as well as a left ventricular ejection fraction of 35%. The patient was seen in consultation by Dr. Tolentino. The patient was noted to have 2-1/2 second pauses and his beta cherie was titrated down, however then he became somewhat tachycardic. Dr. Tolentino feels as though his atrial fibrillation is likely chronic and he did further titrate his beta cherie, but did not feel the patient met an official diagnosis of tachycardia-bradycardia syndrome, but suspected that it could be possible in the future. He recommended outpatient followup. 2. Dilated cardiomyopathy, systolic and diastolic. Although he has no clinical diagnosis of congestive heart failure, there was concern that he may have tachycardia induced cardiomyopathy and this was likely nonischemic. He was medically optimized by Dr. Tolentino and this will be revisited in the near future. Should it fail to improve, he may eventually require a biventricular automatic implantable cardioverter-defibrillator (AICD). 3. Systemic hypertension, fairly well controlled. The patient was continued on lisinopril. He has been changed from metoprolol tartrate to metoprolol succinate. 4. Hypercholesterolemia. The patient is on a DASH diet. He has been recommended to stop taking fish oil as per Dr. Tolentino and to continue simvastatin. 5. Dental infection. The patient was continued on amoxicillin while here. His pain is markedly improved and resolving. He should followup with his dentist regarding his dental pain. 6. Hypothyroidism. He was continued on his Synthroid. 7. BPH. The patient was switched from doxazosin to finasteride as doxazosin is contraindicated in congestive heart failure. 8. Vitamin D deficiency. He was continued on supplementation. 9. Deep venous thrombosis (DVT) prophylaxis. The patient has been anticoagulated with Eliquis for atrial fibrillation. DISPOSITION: The patient is being discharged home to the care of his family. He is to followup with his primary care provider (PCP) in 7 days, Dr. Tolentino within 2 weeks. His activity is as tolerated. His diet is DASH. He is to return to the emergency room (ER) if his symptoms worsen. He is to followup with his dentist. MEDICATIONS: At the time of discharge: - amoxicillin 500 mg every 8 hours for #12 tablets - Eliquis 5 mg twice a day, prior authorization obtained - finasteride 5 mg daily - metoprolol succinate extended release 25 mg twice a day - vitamin D3 1000 units daily - dorzolamide/timolol drops each eye twice daily - levothyroxine 50 mcg daily - lisinopril 30 mg daily - multivitamin one tablet twice a day - simvastatin 20 mg nightly The patient is to stop taking doxazosin and fish oil. Greater than 30 minutes spent organizing safe disposition. Case discussed at length with Dr. Tolentino who agrees with the plan.
== END 2017-04-04 12:10 | disposition home or self-care (01) | DRG 309 ==
LOC: M ED 10:40 → M ED INP 12:29 → M PCU 18:22
PROVIDERS: ADMIT Internal Medicine; ATTEND Internal Medicine
DX: I48.2 Chronic atrial fibrillation (principal); I50.42 Chronic combined systolic (congestive) and diastolic (congestive) heart failure; I11.0 Hypertensive heart disease with heart failure; E78.5 Hyperlipidemia, unspecified; E03.9 Hypothyroidism, unspecified; N40.0 Benign prostatic hyperplasia without lower urinary tract symptoms; E55.9 Vitamin D deficiency, unspecified; L82.1 Other seborrheic keratosis; K08.89 Other specified disorders of teeth and supporting structures; I42.0 Dilated cardiomyopathy; I45.2 Bifascicular block; H40.9 Unspecified glaucoma; E66.3 Overweight; Z68.25 Body mass index [BMI] 25.0-25.9, adult; Z79.899 Other long term (current) drug therapy; Z88.8 Allergy status to other drugs, medicaments and biological substances

== ENCOUNTER → 2021-07-27 | Outpatient (REF) | payer MEDICARE ==
[~2021-07-27] MED LIST: AMOX500C PO; ASPI81TA86 PO; DORZ2SOL5 OU; DORZOL/TIMOL; DOXA1TAB42 PO; ELIQ5TAB PO; FINA5TAB2 PO; FISH100049 PO; LEVO25TA5 PO; LEVO50TA45 PO; LISI30TA4 PO; METO1TAB32 PO; MULT1TAB10 PO; SIMV40TA20 PO; VITA-183 PO; VITMTA PO
[2021-07-27 14:31] LABS: ALBUMIN 3.2 GM/DL (3.2-5.2); ALT/SGPT 30 U/L (12-78); BILIRUBIN,TOTAL 0.6 MG/DL (0.2-1.0); BLOOD UREA NITROGEN 22 MG/DL (7-18); CALCIUM LEVEL 9.1 MG/DL (8.8-10.2); CARBON DIOXIDE LEVEL 27 MEQ/L (21-32); CHLORIDE LEVEL 113 MEQ/L (98-107); DIGOXIN LEVEL 0.6 NG/ML (0.5-2.0); GLOMERULAR FILTRATION RATE > 60.0 (>42); GLUCOSE, FASTING 85 MG/DL (70-100); POTASSIUM SERUM 4.4 MEQ/L (3.5-5.1); SODIUM LEVEL 145 MEQ/L (136-145); TOTAL PROTEIN 5.9 GM/DL (6.4-8.2)
== END ==
LOC: M LABDRWAD 12:21
PROVIDERS: ATTEND Physician Assistant
DX: I48.20 Chronic atrial fibrillation, unspecified (principal)

== ENCOUNTER → 2022-08-31 | Outpatient (CLI) | payer OTHER | LOC: M RAD 12:59 | PROVIDERS: ATTEND Internal Medicine | DX: G45.3 Amaurosis fugax (principal) ==

== ENCOUNTER 2023-11-07 13:19 | Day surgery (SDC) | payer MEDICARE, OTHER ==
[~2023-11-07] VITALS: Ht 185.4 cm; Wt 84.4 kg
[~2023-11-07 13:19] MED LIST changes: +CARV25TA PO; +CHOL1250 PO; +DIGO0.123 PO; +ENTR1TAB PO; +FERR32TA PO; +ROSU40TA4 PO; +ceFAZolin SOD 2 GM in IV 1 EA IV ONE
[2023-11-07] MEDS ORDERED: LIDOCAINE 2% 100MG/5ML SDV (FOR ANES.) As Ordered ONE (14:22)
[2023-11-07] MEDS ORDERED: fentaNYL 100 MCG/2 ML INJECTION As Ordered ONE ×3 (14:22→15:37)
[2023-11-07] MEDS ORDERED: ROCURONIUM BROMIDE 50MG/5ML VIAL As Ordered ONE ×2 (14:22→15:27)
[2023-11-07] MEDS ORDERED: propofoL 200 MG/20 ML VIAL As Ordered ONE (14:22)
[2023-11-07] MEDS ORDERED: ONDANSETRON 4MG 2ML VIAL As Ordered ONE (14:22)
[2023-11-07] MEDS ORDERED: ACETAMINOPHEN 1000MG 100ML IV BAG As Ordered ONE (15:18)
[2023-11-07] MEDS ORDERED: SUGAMMADEX SODIUM 500 MG/5 ML VIAL (BRIDION) As Ordered ONE (15:21)
[2023-11-07] MEDS ORDERED: PHENYLephrine 500MCG 5ML (100MCG/ML) SYRINGE As Ordered ONE (15:30)
[2023-11-07] MEDS ORDERED: ePHEDrine SULFATE 25 MG/5 ML(5MG/ML) SYRINGE As Ordered ONE (15:30)
[2023-11-07] MEDS ORDERED: KETOROLAC 60MG 2ML VIAL As Ordered ONE (15:38)
[2023-11-07] MEDS ORDERED: LR 1,000 ML IV SCH (16:45)
[2023-11-07] MEDS ORDERED: HYDROMORPHONE HCL 0.5 MG/ 0.5 ML SYRINGE IV PRN (16:45)
[2023-11-07] MEDS ORDERED: oxyCODONE 5MG TAB PO PRN (16:45)
[2023-11-07] MEDS ORDERED: fentaNYL 100 MCG/2 ML INJECTION IV PRN (16:45)
[2023-11-07] MEDS ORDERED: ONDANSETRON 4MG 2ML VIAL IV PRN (16:45)
[2023-11-07 18:56] VITALS: BP 158/79; TEMP 97.1; O2SAT 97
== END 2023-11-07 19:43 | disposition home or self-care (01) ==
LOC: M SDC 13:19
PROVIDERS: ATTEND Surgery
DX: K40.90 Unilateral inguinal hernia, without obstruction or gangrene, not specified as recurrent (principal); I10 Essential (primary) hypertension; E03.9 Hypothyroidism, unspecified; I48.91 Unspecified atrial fibrillation; Z79.899 Other long term (current) drug therapy; Z79.890 Hormone replacement therapy; Z79.01 Long term (current) use of anticoagulants; Z95.0 Presence of cardiac pacemaker; Z88.8 Allergy status to other drugs, medicaments and biological substances
CPT/HCPCS: 49650; C1781; J0131; J0665; J0690; J1100; J1885; J2371; J2405; J3010

== ENCOUNTER 2024-09-09 07:59 | Day surgery (SDC) | payer MEDICARE, OTHER ==
[~2024-09-09] VITALS: Ht 185.4 cm; Wt 86.0 kg
[~2024-09-09 07:59] MED LIST changes: +LR 1,000 ML IV SCH; -ROSU40TA4 PO; +ROSU40TA81 PO; +THERTAB52 PO; -ceFAZolin SOD 2 GM in IV 1 EA IV ONE
[2024-09-09] MEDS: ATROPINE SULFATE 1% OPHTH SOLN 2ML BTL OS SCH (09:13)
[2024-09-09] MEDS: FLURBIPROFEN 0.03% OPHTH SOLN 2.5 ML OS SCH (09:13)
[2024-09-09] MEDS: PHENYLEPHRINE 2.5% OPHTH SOL 2ML OS SCH (09:13)
[2024-09-09] MEDS: TETRACAINE 0.5% OPHTH SOLN 4ML OS SCH (09:14)
[2024-09-09] MEDS: LIDOCAINE 1% SDV 5ML VIAL As Ordered ONE (10:40)
[2024-09-09] MEDS: CEFUROXIME 1MG/0.1ML INTRACAMERAL INJ As Ordered ONE (10:40)
[2024-09-09] MEDS ORDERED: MIDAZOLAM INJ 2MG/2ML VIAL As Ordered ONE (10:44)
[2024-09-09] MEDS ORDERED: fentaNYL 100 MCG/2 ML INJECTION As Ordered ONE (10:44)
[2024-09-09 10:55] VITALS: BP 172/89; TEMP 97; O2SAT 97
== END 2024-09-09 11:26 | disposition home or self-care (01) ==
LOC: M SDC 07:59
PROVIDERS: ATTEND Ophthalmology
DX: H25.12 Age-related nuclear cataract, left eye (principal); I48.91 Unspecified atrial fibrillation; Z95.810 Presence of automatic (implantable) cardiac defibrillator; Z79.899 Other long term (current) drug therapy
CPT/HCPCS: 66984; J0697; J2250; J3010; V2632

== ENCOUNTER → 2025-01-13 | Outpatient (REF) | payer MEDICARE ==
[~2025-01-13] MED LIST changes: -LR 1,000 ML IV SCH
[2025-01-13 18:49] LABS: APPEARANCE, URINE CLOUDY (CLEAR); BACTERIA, URINE AUTO 1+ (NEGATIVE); BILIRUBIN, URINE AUTO NEGATIVE (NEGATIVE); BLOOD, URINE BLOOD 3+ (NEGATIVE); COLOR, URINE AMBER (YELLOW); GLUCOSE, URINE (UA) AUTO NEGATIVE (NEGATIVE); KETONE, URINE AUTO NEGATIVE (NEGATIVE); LEUKOCYTE ESTERASE, URINE AUTO 2+ (NEGATIVE); MUCUS, URINE SMALL (NEGATIVE); NITRITE, URINE AUTO NEGATIVE (NEGATIVE); PROTEIN, URINE AUTO 2+ mg/dL (NEGATIVE); RBC, URINE AUTO 183 /HPF (0-3); SQUAMOUS EPITHELIAL CELL UR AU 0 /HPF (0-6); UROBILINOGEN, URINE AUTO 0.2 mg/dL (0.0-2.0); WBC, URINE AUTO 102 /HPF (0-3)
== END ==
LOC: M LAB REF 17:58
PROVIDERS: ATTEND Physician Assistant Medical
DX: N39.0 Urinary tract infection, site not specified (principal)

== ENCOUNTER → 2025-02-20 | Outpatient (REF) | payer MEDICARE, OTHER ==
[2025-02-20 17:16] LABS: APPEARANCE, URINE CLOUDY (CLEAR); BACTERIA, URINE AUTO 2+ (NEGATIVE); BILIRUBIN, URINE AUTO NEGATIVE (NEGATIVE); BLOOD, URINE BLOOD NEGATIVE (NEGATIVE); CALCIUM OXALATE CRYSTALS LARGE; COLOR, URINE AMBER (YELLOW); GLUCOSE, URINE (UA) AUTO NEGATIVE (NEGATIVE); KETONE, URINE AUTO NEGATIVE (NEGATIVE); LEUKOCYTE ESTERASE, URINE AUTO 2+ (NEGATIVE); MUCUS, URINE LARGE (NEGATIVE); NITRITE, URINE AUTO POSITIVE (NEGATIVE); PROTEIN, URINE AUTO 1+ mg/dL (NEGATIVE); RBC, URINE AUTO 2 /HPF (0-3); SPECIFIC GRAVITY URINE AUTO 1.021 (1.002-1.035); SQUAMOUS EPITHELIAL CELL UR AU 1 /HPF (0-6); WBC, URINE AUTO 109 /HPF (0-3)
== END ==
LOC: M SMT 16:42
PROVIDERS: ATTEND Nurse Practitioner Family
DX: N40.1 Benign prostatic hyperplasia with lower urinary tract symptoms (principal)